=== PATIENT | male | born 1950 | race Caucasian/White ===

== ENCOUNTER 2019-09-01 09:28 | Outpatient (CLI) | payer OTHER, SELFPAY | END 2019-09-01 09:29 | disposition home or self-care (01) | LOC: RAD 09:34 | PROVIDERS: PCP Emergency Medicine Emergency Medical Services; Visit Provider Emergency Medicine Emergency Medical Services | DX: I71.4 Abdominal aortic aneurysm, without rupture (principal) | CPT/HCPCS: 76706 ==

== ENCOUNTER 2020-12-26 11:14 | Outpatient (CLI) | payer OTHER, SELFPAY ==
--- NOTE | 2020-12-26 11:26 | XR_ITS ---
WS: [id number] Exam: XR chest 2V* [id number] Date/Time of Exam: 12/26/2020 11:37 AM Reason For Exam: baseline chest xray No priors. There are interstitial infiltrates noted in the bilateral lower lung zones. 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 Normal cardiomediastinal silhouette. No pleural effusions. No pneumothorax. Regional bony elements are intact. XR/XR chest 2V* [id number] IMPRESSION: 1. Mild interstitial densities in the bilateral lower lung zones. This could re present active pneumonia or chronic change.
[2020-12-26 12:32] LABS: Basophils # 0.1 10^3/uL (0.0-0.1); Eosinophils # 0.2 10^3/uL (0.0-0.8); Eosinophils % 2.2 %; Hematocrit 51.9 % (42.0-52.0); Hemoglobin 16.6 g/dL (11.7-16.6); Lymphocytes % 12.6 %; Mean Corpuscular Hemoglobin 28.4 pg (28.0-34.0); Mean Corpuscular Volume 88.9 fL (80-94); Mean Platelet Volume 12.6 fL (7.4-10.4); Monocytes # 0.8 10^3/uL (0.2-0.9); Monocytes % 9.4 %; Neutrophils # 5.93 10^3/uL (1.8-7.7); Neutrophils % 71.7 %; Nucleated Red Blood Cells % 0 %; Platelet Count 142 10^3/cmm (130-400); Red Blood Count 5.84 10^6/uL (4.1-5.3); Red Cell Distribution Width 14.6 % (12.1-15.1); White Blood Count 8.3 10^3/uL (4.0-10.0)
[2020-12-27 17:01] LABS: Alternaria Alternata (M6) Ige <0.10 kU/L; Alternaria Class 0; Bermuda Class 0; Bermuda Grass (G2) Ige <0.10 kU/L; Cat Dander (E1) Ige <0.10 kU/L; Cat Dander Class 0; Common Ragweed (Short) (W1) Ig <0.10 kU/L; D. Farinae Class 0; Dermatophagoides Class 0; Dermatophagoides Farinae (D2) <0.10 kU/L; Dermatophagoides Pteronyssinus <0.10 kU/L; Dog Dander (E5) Ige <0.10 kU/L; Dog Dander Class 0; Elm (T8) Ige <0.10 kU/L; Elm Class 0; English Plantain (W9) Ige <0.10 kU/L; English Plantain Class 0; House Dust (Greer) (H1) Ige <0.10 kU/L; House Dust (Hollister- Stier) <0.10 kU/L; House Dust Class 0; Immunoglobulin E 13 kU/L (<OR=114); Johnson Grass (G10) Ige <0.10 kU/L; Johnson Grass Cl 0; June Grass Class 0; June Grass(Kentucky Blue) (G8) <0.10 kU/L; Lamb'S Quarters (Goose Foot) <0.10 kU/L; Lamb'S Quarters Class 0; Maple (Box Elder) (T1) Ige <0.10 kU/L; Maple Class 0; Meadow Fescue (G4) Ige <0.10 kU/L; Meadow Fescue Class 0; Mucor Racemosus Class 0; Oak (T7) Ige <0.10 kU/L; Oak Class 0; Orchard Grass (Cocksfoot) (G3) <0.10 kU/L; Penicillium Class 0; Penicillium Notatum (M1) Ige <0.10 kU/L; Perennial Rye Grass (G5) Ige <0.10 kU/L; Perennial Rye Grass Class 0; Ragweeed Class 0; Rough Marsh Elder (W16) Ige <0.10 kU/L; Rough Marsh Elder Class 0; Sweet Vernal Class 0; Sweet Vernal Grass (G1) Ige <0.10 kU/L; Timothy Grass (G6) Ige <0.10 kU/L; Timothy Grass Class 0
== END 2020-12-26 11:15 | disposition home or self-care (01) ==
PROVIDERS: PCP Emergency Medicine Emergency Medical Services; Visit Provider Internal Medicine Pulmonary Disease
DX: J44.9 Chronic obstructive pulmonary disease, unspecified (principal); R06.00 Dyspnea, unspecified
CPT/HCPCS: 71046; 82785; 85025; 86003

== ENCOUNTER 2021-01-17 09:24 | Outpatient (RCR) | payer OTHER, SELFPAY | END 2021-01-28 23:59 | disposition home or self-care (01) | LOC: PULRHB 09:24 | PROVIDERS: PCP Emergency Medicine Emergency Medical Services; Visit Provider Emergency Medicine Emergency Medical Services | DX: J44.9 Chronic obstructive pulmonary disease, unspecified (principal) | CPT/HCPCS: 94618; G0424 ==

== ENCOUNTER → 2021-01-24 10:37 | Outpatient (BNVA) | payer OTHER, SELFPAY | PROVIDERS: PCP Emergency Medicine Emergency Medical Services; Visit Provider Internal Medicine Pulmonary Disease | DX: J44.9 Chronic obstructive pulmonary disease, unspecified (principal); Z20.822 Contact with and (suspected) exposure to COVID-19 | CPT/HCPCS: 87635 ==

== ENCOUNTER 2021-01-29 06:00 | Outpatient (RCR) | payer OTHER, MEDICARE, SELFPAY | END 2021-02-27 23:59 | disposition home or self-care (01) | LOC: PULRHB 06:00 | PROVIDERS: PCP Emergency Medicine Emergency Medical Services; Visit Provider Emergency Medicine Emergency Medical Services | DX: J44.9 Chronic obstructive pulmonary disease, unspecified (principal) | CPT/HCPCS: G0424 ==

== ENCOUNTER 2021-01-29 09:39 | Outpatient (CLI) | payer OTHER, SELFPAY ==
--- NOTE | 2021-01-29 10:15 | USCV_ITS ---
Sameer Parada Age: 70 Gender: M : 1950 Exam Date: 01/29/2021 10:02 Ordering Phys: Ed Ventura MD Technologist: Deandra Ortiz Exam Location: [facility] [place] Indication: CHEST PAIN SOB BP: 135 / 74 HR: 73 Rhythm: Sinus Technical Quality: Adequate MEASUREMENTS (Male / Female) Normal Values 2D ECHO LV Diastolic Diameter PLAX 3.5 cm 4.2 - 5.9 / 3.9 - 5.3 cm LV Systolic Diameter PLAX 3.5 cm LV Chamber Size 3.2 cm IVS Diastolic Thickness 1.4 cm 0.6 - 1.0 / 0.6 - 0.9 cm IVS Systolic Thickness 1.7 cm LVPW Diastolic Thickness 1.5 cm 0.6 - 1.0 / 0.6 - 0.9 cm LVPW Systolic Thickness 2.3 cm RV Chamber Size 3.6 cm LVOT Diameter 2.1 cm LV Ejection Fraction 2D Teich 25.0 % LV Ejection Fraction MOD 2C 50.9 % LV Ejection Fraction 2C AL 53.1 % LA Diameter 4.1 cm LA Width 3.0 cm LA Height 4.6 cm RA Width 3.0 cm RA Height 5.8 cm Aorta at Sinotubular Diameter 3.9 cm M-MODE Aortic Annulus Diameter 3.9 cm LA Ao Ratio MM 1.2 MV E Point Septal Separation 0.6 cm DOPPLER AV Peak Velocity 132.0 cm/s LVOT Peak Velocity 81.0 cm/s AV Area Cont Eq vti 2.4 cm squared AV Area Cont Eq pk 2.2 cm squared MV Area PHT 5.0 cm squared Mitral E to A Ratio 0.5 MV E' Velocity 21.5 cm/s Mitral E to MV E' Ratio 9.0 Mitral E to LV E' Lateral Ratio 7.8 Mitral E to LV E' Septal Ratio 10.8 TR Peak Velocity 183.9 cm/s TR Peak Gradient 13.5 mmHg TR Mean Velocity 176.6 cm/s TR Mean Gradient 13.3 mmHg TR Velocity Time Integral 69.2 cm TV Peak E Velocity 54.0 cm/s Right Atrial Pressure 8.0 mmHg Pulmonary Artery Systolic Pressu 21.5 mmHg PV Peak Velocity 56.0 cm/s RV Acceleration Time 0.1 s RV Ejection Time 0.3 s RV AcT/ET 0.5 FINDINGS Left Ventricle Normal left ventricular size. Grossly LV systolic function appears to be mildly reduced. Regional wall motion abnormalities can not be assessed because of poor visualization. Grade 1 diastolic dysfunction Right Ventricle Grossly RV appears dilated and has mildly reduced function Right Atrium The right atrium is normal in size. Left Atrium The left atrium is normal in size. Mitral Valve Structurally normal mitral valve without significant stenosis or prolapse. There is no mitral regurgitation. Aortic Valve Grossly normal without significant sclerosis or stenosis. There is no aortic regurgitation. Tricuspid Valve Structurally normal tricuspid valve without significant stenosis or regurgitation. Insufficient TR jet to calculate RVSP Pulmonic Valve Not well visualized Pericardium Normal pericardium without effusion. Aorta Ascending aorta appears mildly dilated CONCLUSIONS This is a limited quality echocardiogram because of poor ultrasonic windows. LV systolic function is grossly mildly reduced. Regional wall motion abnormalities cannot be assessed because of poor visualization. Grade 1 diastolic dysfunction is noted. Grossly RV appears dilated and has mildly reduced function. No significant valvular heart disease seen. Ascending aorta appears mildly dilated. No comparison studies are available. Malik Davila MD (Electronically Signed) Final Date: 05 February 2021 22:20 S
--- NOTE | 2021-01-29 12:41 | PFTS_ITS ---
Date of Study:01/29/21 Date of Dictation: MECHANICS: Forced vital capacity (FVC) is reduced. Forced expiratory volume in one second (FEV1) is reduced. FEV1/FVC is normal. FLOW VOLUME LOOP: Narrow. LUNG VOLUMES: Total lung capacity (TLC) is reduced. Residual volume (RV) is reduced. DIFFUSING CAPACITY FOR CARBON MONOXIDE: Moderately reduced. INTERPRETATION: Postbronchodilator spirometry is consistent with moderate restriction. There is no significant postbronchodilator response. Lung volumes are consistent with restrictive lung disease. Gas exchange (DLCO) is moderately reduced. MTDD
== END 2021-01-29 09:40 | disposition home or self-care (01) ==
LOC: RAD 09:42
PROVIDERS: PCP Emergency Medicine Emergency Medical Services; Visit Provider Internal Medicine Pulmonary Disease
DX: R06.00 Dyspnea, unspecified (principal); R07.9 Chest pain, unspecified; R06.02 Shortness of breath; I51.81 Takotsubo syndrome
CPT/HCPCS: 93306; 94060; 94618; 94726; 94729; J7611

== ENCOUNTER 2021-02-11 09:39 | Outpatient (CLI) | payer OTHER, SELFPAY ==
[2021-02-11 10:43] LABS: Alanine Aminotransferase 13 U/L (0-41); Albumin Level 4.3 g/dL (3.5-5.2); Alkaline Phosphatase 80 IU/L (40-130); Anion Gap 14.4 (5-19); Aspartate Amino Transferase 17 U/L (0-40); Blood Urea Nitrogen 29 mg/dL (8-23); C Reactive Protein 4.8 mg/L (0.0-4.9); Calcium 9.7 mg/dL (8.5-10.5); Carbon Dioxide 23 mmol/L (22-29); Chloride 108 mmol/L (98-107); Globulin 2.3 g/dL (1.3-4.6); Glucose 96 mg/dL (65-115); Osmolality Calculated 298 mOsm/kg (285-295); Potassium 4.4 mmol/L (3.5-5.1); Sodium 141 mmol/L (136-145); Total Bilirubin 0.3 mg/dL (0.15-1.2); Total Protein 6.6 g/dL (6.6-8.7)
[2021-02-11 11:40] LABS: Erythrocyte Sedimentation Rate 24 mm/hr (0-10)
[2021-02-12 13:09] LABS: Anti-Double Strand DNA AB <1 IU/mL; Centromere B Antibody <1.0 NEG AI (<1.0 NEG); Cyclic Citrullinated Peptide <16 UNITS; JO-1 Antibody <1.0 NEG AI (<1.0 NEG); SCL 70 <1.0 NEG AI (<1.0 NEG); SS A Ro Sjogrens Antibody <1.0 NEG AI (<1.0 NEG); SS-B/LA IGG <1.0 NEG AI (<1.0 NEG); Sm/RNP Antibody <1.0 NEG AI (<1.0 NEG); Smith Antibody <1.0 NEG AI (<1.0 NEG)
== END 2021-02-11 09:40 | disposition home or self-care (01) ==
PROVIDERS: PCP Emergency Medicine Emergency Medical Services; Visit Provider Internal Medicine Pulmonary Disease
DX: J98.4 Other disorders of lung (principal)
CPT/HCPCS: 36415; 80053; 85651; 86140; 86225; 86235; 86431

== ENCOUNTER 2021-02-14 09:48 | Outpatient (CLI) | payer OTHER, SELFPAY ==
--- NOTE | 2021-02-14 10:45 | CT_ITS ---
WS: [id number] CT CHEST CT-HIGH RESOLUTION, NONCONTRAST. HISTORY: Interstitial lung disease. Technique: High-resolution chest CT is performed in inspiration, expiration, supine and prone positio carmelo. All CT scans at [facility] use at least one of these dose optimization techniques: automa jean pierre exposure control; mA and/or kV adjustment per patient size (includes targeted exams where dose is matched to clinical indication); or iterative reconstruction. DLP: 1533.15 mGycm COMPARISON: Chest radiograph 12/26/2020 Findings: Mild volume loss of each lung. Multiple layers of cystic honeycombing greatest at the lung bases. Honeycombing also extends into the upper lung zarco within a subpleural distribution but is l ess advanced. There is mild traction bronchiectasis greatest at the lung bases. With expiration there is some very mild air trapping and subsegmental portions of the lower lobes. There are additional cy stic areas in the upper lung zarco bilaterally. No dense focal area of consolidation. No pleural effusion or pericardial effusions. Numerous ovoid shaped mediastinal and hilar lymph nodes . Indeterminate with the largest lymph node on the RIGHT inferior paratracheal region measuring 9 mm in diameter. Mild pulmonary artery dilatation. Mild atherosclerosis aorta. Moderate coronary artery c alcifications. Small hiatal hernia. Cholelithiasis without acute cholecystitis. Enlarged LEFT lobe of the thyroid extends substernal. Maximum diameter of 3.[address]/CT chest wo con [id number] Impression: 1. 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 2. Indeterminate mediastinal and hilar lymph nodes can be seen with a UIP. 3. Enlarged LEFT thyroid extends substernal. Recommend follow-up ultrasound to evaluate for possible mass. This may be a goiter. 4. Cholelithiasis without acute cholecystitis.
== END 2021-02-14 09:49 | disposition home or self-care (01) ==
LOC: RADWPI 09:51
PROVIDERS: PCP Emergency Medicine Emergency Medical Services; Visit Provider Internal Medicine Pulmonary Disease
DX: J98.4 Other disorders of lung (principal); K80.20 Calculus of gallbladder without cholecystitis without obstruction; E04.9 Nontoxic goiter, unspecified
CPT/HCPCS: 71250

== ENCOUNTER 2021-02-28 06:00 | Outpatient (RCR) | payer OTHER, SELFPAY | END 2021-03-30 23:59 | disposition home or self-care (01) | LOC: PULRHB 06:00 | PROVIDERS: PCP Emergency Medicine Emergency Medical Services; Visit Provider Emergency Medicine Emergency Medical Services | DX: J44.9 Chronic obstructive pulmonary disease, unspecified (principal) | CPT/HCPCS: G0424 ==

== ENCOUNTER → 2021-04-02 10:32 | Outpatient (BNVA) | payer OTHER, SELFPAY | PROVIDERS: PCP Emergency Medicine Emergency Medical Services; Visit Provider Internal Medicine | DX: J84.112 Idiopathic pulmonary fibrosis (principal); R70.0 Elevated erythrocyte sedimentation rate; M79.643 Pain in unspecified hand; Z79.899 Other long term (current) drug therapy; Z11.59 Encounter for screening for other viral diseases; Z11.1 Encounter for screening for respiratory tuberculosis; Z87.891 Personal history of nicotine dependence | CPT/HCPCS: 36415; 99203; 99204 ==

== ENCOUNTER 2021-04-02 11:42 | Outpatient (CLI) | payer OTHER, SELFPAY ==
--- NOTE | 2021-04-02 11:46 | XR_ITS ---
WS: [id number] Left hand, 2 views, 04/02/2021 Clinical Data: J84.112 - Idiopathic pulmonary fibrosis Comparison: None. Findings: No fractures or dislocations are seen. The soft tissues are unremarkable. There is osteoarthritic pilo nge of the left first, third and fourth MCP joints. There is osteoarthritic change of the left first IP joint and the second through fourth PIP joints. There is osteoarthritis of the second through four th DIP joints. No periarticular demineralization or calcifications are seen. XR/XR hand LT 2V [id number] Impression: Diffuse osteoarthritis of the left hand.
--- NOTE | 2021-04-02 11:46 | XR_ITS ---
WS: [id number] Right hand, 2 views, 04/02/2021 Clinical Data: J84.112 - Idiopathic pulmonary fibrosis Comparison: None. Findings: No fractures or dislocations are seen. The soft tissues are unremarkable. Osteoarthritic change of the first through third MCP joints, first IP joint, second through fifth PIP joints and sec ond through fourth DIP joints is seen. There is osteoarthritic change of the radial ulnar articulatio n and radiocarpal and ulnar carpal articulation. No periarticular demineralization or calcification i s seen. 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
== END 2021-04-02 11:43 | disposition home or self-care (01) ==
PROVIDERS: PCP Emergency Medicine Emergency Medical Services; Visit Provider Internal Medicine
DX: J84.112 Idiopathic pulmonary fibrosis (principal); M32.9 Systemic lupus erythematosus, unspecified; Z11.59 Encounter for screening for other viral diseases; Z11.1 Encounter for screening for respiratory tuberculosis; D86.9 Sarcoidosis, unspecified
CPT/HCPCS: 73120; 86480; 86704; 86803; 87340

== ENCOUNTER 2021-04-30 10:15 | Outpatient (CLI) | payer OTHER, SELFPAY ==
[2021-04-30 11:23] LABS: Alanine Aminotransferase 13 U/L (0-41); Alkaline Phosphatase 82 IU/L (40-130); Aspartate Amino Transferase 17 U/L (0-40); Globulin 2.8 g/dL (1.3-4.6); Total Bilirubin 0.2 mg/dL (0.15-1.2); Total Protein 6.8 g/dL (6.6-8.7)
== END 2021-04-30 10:16 | disposition home or self-care (01) ==
LOC: LAB 10:17
PROVIDERS: PCP Emergency Medicine Emergency Medical Services; Visit Provider Internal Medicine Pulmonary Disease
DX: J84.112 Idiopathic pulmonary fibrosis (principal)
CPT/HCPCS: 36415; 80076

== ENCOUNTER 2021-05-28 13:08 | Outpatient (CLI) | payer OTHER, SELFPAY ==
--- NOTE | 2021-05-28 13:21 | US_ITS ---
WS: [id number] THYROID ULTRASOUND (TI-RADS CRITERIA) History: Thyroid nodules. Technique: Ultrasound examination of the thyroid and adjacent soft tissues is performed. FINDINGS: Right lobe: 6.0 cm x 2.0 cm x 2.2 cm. Volume: 14.0 cm3. Lobulated heterogeneous thyroid. Well-circumscribed hyperechoic nodule in the mid gland measures 1.2 x 0.9 x 1.3 cm. No increased vascularity. There is an additional hypoechoic nodule measuring 0.7 x 1. 2 x 1.8 cm in the inferior lobe. Lymph nodes: None. Left lobe: 6.8 cm x 4.1 cm x 3.4 cm. Volume: 49.8 cm3. Enlarged LEFT thyroid. Very lobulated appearance to the thyroid gland. The entire gland is lobulated and heterogeneous. Within the abnormal thyroid there is a hypoechoic nodule measuring 1.9 x 2.0 x 2.5 cm in the mid posterior gland. Lymph nodes: None. Isthmus: 0.8 cm. US/US thyroid [id number] Impression: 1. Multinodular enlarged LEFT thyroid. Consider fine-needle aspiration by ultr asound of the hypoechoic portion of the LEFT thyroid nodule. 2. Multiple nodules in the RIGHT thyroid for which yearly follow-up evaluation recommended.
[2021-05-28 15:01] LABS: Alanine Aminotransferase 12 U/L (0-41); Alkaline Phosphatase 76 IU/L (40-130); Aspartate Amino Transferase 14 U/L (0-40); Globulin 2.8 g/dL (1.3-4.6); Total Bilirubin 0.2 mg/dL (0.15-1.2); Total Protein 6.8 g/dL (6.6-8.7)
== END 2021-05-28 13:09 | disposition home or self-care (01) ==
PROVIDERS: PCP Emergency Medicine Emergency Medical Services; Referring Provider Internal Medicine Pulmonary Disease; Visit Provider Nurse Practitioner Family
DX: J84.112 Idiopathic pulmonary fibrosis (principal); Z79.899 Other long term (current) drug therapy; Q89.2 Congenital malformations of other endocrine glands; E04.2 Nontoxic multinodular goiter
CPT/HCPCS: 36415; 76536; 80076

== ENCOUNTER → 2021-05-31 10:16 | Outpatient (BNVA) | payer OTHER, SELFPAY | PROVIDERS: PCP Emergency Medicine Emergency Medical Services; Visit Provider Internal Medicine | DX: E04.2 Nontoxic multinodular goiter (principal); Z79.4 Long term (current) use of insulin | CPT/HCPCS: 99213; 99214 ==

== ENCOUNTER 2021-05-31 11:30 | Outpatient (CLI) | payer OTHER, SELFPAY ==
[2021-05-31 12:15] LABS: Thyroid Stimulating Hormone 2.83 uIU/mL (0.27-4.20)
== END 2021-05-31 11:31 | disposition home or self-care (01) ==
LOC: LAB 11:34
PROVIDERS: PCP Emergency Medicine Emergency Medical Services; Visit Provider Internal Medicine
DX: E04.9 Nontoxic goiter, unspecified (principal)
CPT/HCPCS: 84443

== ENCOUNTER → 2021-11-13 09:24 | Outpatient (BNVA) | payer OTHER, SELFPAY | PROVIDERS: PCP Emergency Medicine Emergency Medical Services; Visit Provider Internal Medicine Pulmonary Disease | DX: J84.112 Idiopathic pulmonary fibrosis (principal) | CPT/HCPCS: 87635 ==

== ENCOUNTER 2021-11-19 11:19 | Outpatient (CLI) | payer OTHER, SELFPAY ==
--- NOTE | 2021-11-19 13:34 | PFTS_ITS ---
Date of Study:11/19/21 Date of Dictation: 11/20/21 MECHANICS: Pre bronchodilator Forced vital capacity (FVC) is reduced 65%. Pre bronchodilator Forced expiratory volume in one second (FEV1) is 72% . FEV1/FVC is normal. There is no post bronchodialator study performed. FLOW VOLUME LOOP: Normal LUNG VOLUMES: Total lung capacity (TLC) is mildly reduced 75%. Residual volume (RV) is normal. DIFFUSING CAPACITY FOR CARBON MONOXIDE: severely reduced 30% . INTERPRETATION: The prebronchodilator spirometry is consistent with moderate restriction. Lungs volumes show mild restriction. Gas transfer is severely reduced out of proportion to restriction suggesting coexisting pulmonary vascular disease .Correlate clinically. MTDD
== END 2021-11-19 11:20 | disposition home or self-care (01) ==
PROVIDERS: PCP Emergency Medicine Emergency Medical Services; Visit Provider Internal Medicine Pulmonary Disease
DX: J84.112 Idiopathic pulmonary fibrosis (principal)
CPT/HCPCS: 94010; 94618; 94726; 94729

== ENCOUNTER → 2021-11-20 13:10 | Outpatient (BNVA) | payer OTHER, SELFPAY | PROVIDERS: PCP Emergency Medicine Emergency Medical Services; Visit Provider Internal Medicine Pulmonary Disease | DX: J44.9 Chronic obstructive pulmonary disease, unspecified (principal); J98.4 Other disorders of lung; J84.112 Idiopathic pulmonary fibrosis; Z87.891 Personal history of nicotine dependence; E11.8 Type 2 diabetes mellitus with unspecified complications; E78.5 Hyperlipidemia, unspecified; I10 Essential (primary) hypertension | CPT/HCPCS: 99214 ==

== ENCOUNTER 2021-12-02 12:55 | Outpatient (CLI) | payer OTHER, SELFPAY ==
--- NOTE | 2021-12-02 13:03 | US_ITS ---
WS: [id number] ULTRASOUND RENAL TECHNIQUE: Ultrasound examination of both kidneys. CLINICAL INFORMATION: CHRONIC KIDNEY DZ STAGE 3B COMPARISON: None. FINDINGS: RIGHT:3. Incidental simple RIGHT renal cyst lower pole measuring 1.0 x 0.8 x 1.0 cm Right kidney is normal in size and appearance. Echogenicity: Normal. Cortical thickness: 1.5 cm; Normal. Hydronephrosis: None. Perinephric fluid: None. Right kidney measures: 12.2 cm x 5.6 cm x 6.2 cm. LEFT: Hypoechoic lesion mid LEFT kidney measuring 1.7 x 2.1 x 1.8 cm is indeterminant and not definit marquita cystic. No internal vascularity. Recommend further evaluation with contrast-enhanced CT of abdome n and pelvis. Left kidney is normal in size and appearance. Echogenicity: Normal. Cortical thickness: 1.7 cm; Normal. Hydronephrosis: None. Perinephric fluid: None. Left kidney measures: 12.5 cm x 5.5 cm x 5.6 cm. Normal visualized aorta. Normal bladder. US/US renal BI* [id number] IMPRESSION: 1. No hydronephrosis in either kidney. 2. Hypoechoic LEFT renal lesion measuring 1.7 x 2.1 x 1.8 cm is not definitely cystic and recommend further evaluation with contrast-enhanced CT abdomen pelv is. 3. Incidental simple RIGHT renal cyst lower pole measuring 1.0 x 0.8 x 1.0 cm
== END 2021-12-02 12:56 | disposition home or self-care (01) ==
PROVIDERS: PCP Emergency Medicine Emergency Medical Services; Visit Provider Registered Nurse
DX: N18.32 Chronic kidney disease, stage 3b (principal); N28.89 Other specified disorders of kidney and ureter; N28.1 Cyst of kidney, acquired
CPT/HCPCS: 76770

== ENCOUNTER → 2021-12-13 09:54 | Outpatient (BNVA) | payer OTHER, SELFPAY | PROVIDERS: PCP Emergency Medicine Emergency Medical Services; Visit Provider Internal Medicine | DX: E04.1 Nontoxic single thyroid nodule (principal); E04.9 Nontoxic goiter, unspecified; R13.10 Dysphagia, unspecified; Z87.891 Personal history of nicotine dependence | CPT/HCPCS: 99213; 99214 ==

== ENCOUNTER 2022-01-02 13:37 | Outpatient (CLI) | payer OTHER, SELFPAY ==
--- NOTE | 2022-01-02 13:45 | CT_ITS ---
WS: [id number] CT ABDOMEN WITHOUT CONTRAST HISTORY: CYST OF KIDNEY Contiguous single phase 5 mm axial imaging performed to the abdomen. Oral contrast has not been provi ded. Coronal and sagittal reformats are submitted. All CT scans at [facility] use at least on e of these dose optimization techniques: automated exposure control; mA and/or kV adjustment per jana ent size (includes targeted exams where dose is matched to clinical indication); or iterative reconst ruction. CONTRAST: None DLP: 900.93 mGy.cm COMPARISON: Renal ultrasound 12/02/2021 Lower thorax: Bilateral lower lobe mild honeycombing. No discrete mass. Heart is mildly enlarged. Mod erate size hiatal hernia. Liver: Normal. No intrahepatic dilatation. Small amount of air is noted within the common bile duct t hrough the pancreatic head. Gallbladder: Prior cholecystectomy. Pancreas: Moderate atrophy and fatty replacement. No duct dilatation. Spleen: Normal. Adrenals: Normal. Right kidney: Normal. Left kidney: Recently described mass by ultrasound is not definitely visualized by CT. There is very slight bulging of the contour at the lower pole. I cannot confirm this is the same area seen by ultra sound. No hydronephrosis. Aorta: Status post endovascular graft repair of the aorta. No adjacent hematoma. No prior study for c omparison but no abnormality is identified on this unenhanced exam. GI tract: Unremarkable stomach and proximal small bowel. The appendix is visualized and as visualized is normal. Numerous diverticula in the visualized colon. No adenopathy or free fluid. Abdominal wall: No hernia. Visualized osseous structures: Advanced degenerative disc disease and spondylitic changes in the spin e. CT/CT abdomen wo con [id number] IMPRESSION: 1. Recently described LEFT renal mass is not visualized or evaluated well on t his unenhanced CT of the abdomen. Very slight bulge in the contour of the lower pole but otherwise no change in attenuation. If the patient is unable to have IV contrast consider short-term follow-up by ultrasound to evaluate for any pilo nge in size of the solid appearing mass. 2. Status post endovascular graft repair of the aorta as visualized is normal. 3. Prior cholecystectomy. 4. Honeycombing consistent with IUP at the lung bases. 5. Moderate hiatal hernia.
== END 2022-01-02 13:38 | disposition home or self-care (01) ==
PROVIDERS: PCP Emergency Medicine Emergency Medical Services; Visit Provider Internal Medicine Nephrology
DX: N28.1 Cyst of kidney, acquired (principal); Z90.49 Acquired absence of other specified parts of digestive tract; K44.9 Diaphragmatic hernia without obstruction or gangrene; J98.4 Other disorders of lung
CPT/HCPCS: 74150

== ENCOUNTER 2022-02-06 11:08 | Outpatient (CLI) | payer OTHER, SELFPAY ==
[2022-02-06 11:59] LABS: Basophils # 0.1 10^3/uL (0.0-0.1); Basophils % 0.7 %; Eosinophils # 0.4 10^3/uL (0.0-0.8); Hematocrit 49.1 % (42.0-52.0); Hemoglobin 15.5 g/dL (11.7-16.6); Lymphocytes # 1.7 10^3/uL (0.8-4.8); Lymphocytes % 19.3 %; Mean Corpuscular HGB Conc 31.6 g/dL (30.0-36.0); Mean Corpuscular Volume 88.8 fl (80-94); Mean Platelet Volume 11.7 fL (7.4-10.4); Monocytes # 0.7 10^3/uL (0.2-0.9); Monocytes % 7.9 %; Neutrophils % 64.3 %; Nucleated Red Blood Cells % 0 %; Platelet Count 235 10^3/cmm (130-400); Red Blood Count 5.53 10^6/uL (4.1-5.3); Red Cell Distribution Width 14.7 % (12.1-15.1); White Blood Count 8.7 10^3/uL (4.0-10.0)
[2022-02-06 12:12] LABS: Erythrocyte Sedimentation Rate 18 mm/hr (0-10)
[2022-02-06 12:22] LABS: Alanine Aminotransferase 17 U/L (0-41); Albumin Level 4.4 g/dL (3.5-5.2); Alkaline Phosphatase 117 IU/L (40-130); Anion Gap 15.3 (5-19); Aspartate Amino Transferase 17 U/L (0-40); Blood Urea Nitrogen 24 mg/dL (8-23); C Reactive Protein 8.5 mg/L (0.0-4.9); Calcium 9.9 mg/dL (8.5-10.5); Carbon Dioxide 25 mmol/L (22-29); Chloride 102 mmol/L (98-107); Globulin 3.5 g/dL (1.3-4.6); Glucose 117 mg/dL (65-115); Osmolality Calculated 291 mOsm/kg (285-295); Potassium 4.3 mmol/L (3.5-5.1); Sodium 138 mmol/L (136-145); Total Bilirubin 0.3 mg/dL (0.15-1.2); Total Protein 7.9 g/dL (6.6-8.7)
== END 2022-02-06 11:09 | disposition home or self-care (01) ==
LOC: LAB 11:10
PROVIDERS: PCP Emergency Medicine Emergency Medical Services; Visit Provider Internal Medicine
DX: R70.0 Elevated erythrocyte sedimentation rate (principal); J84.112 Idiopathic pulmonary fibrosis; Z79.899 Other long term (current) drug therapy
CPT/HCPCS: 36415; 80053; 85025; 85651; 86140

== ENCOUNTER → 2022-02-10 10:25 | Outpatient (BNVA) | payer OTHER, SELFPAY | PROVIDERS: PCP Emergency Medicine Emergency Medical Services; Visit Provider Internal Medicine | DX: J44.9 Chronic obstructive pulmonary disease, unspecified (principal); J84.112 Idiopathic pulmonary fibrosis; M79.643 Pain in unspecified hand; R70.0 Elevated erythrocyte sedimentation rate; N18.9 Chronic kidney disease, unspecified; Z87.891 Personal history of nicotine dependence | CPT/HCPCS: 99213; 99214 ==

== ENCOUNTER 2022-03-11 13:14 | Outpatient (CLI) | payer OTHER, SELFPAY ==
--- NOTE | 2022-03-11 14:00 | US_ITS ---
WS: [id number] ULTRASOUND THYROID FNA CLINICAL INFORMATION: FNA of 1.8 and 2.5 cm nodule TECHNIQUE: Ultrasound-guided FNA FINDINGS: The procedure including risks, benefits, and complications were discussed with the patient who agreed to proceed. Timeout was performed. Using sterile technique patient was prepped and draped in usual sterile fashion. After 1% lidocaine, using ultrasound guidance, a 25-gauge needle was advanc ed into the LEFT mid thyroid nodule. 3 passes were made with active aspiration. Pathology was present for slide preparation. No immediate complications. Patient remained in the ultrasound suite 20 minutes postprocedure with intermittent ultrasound to ens ure no hematoma. No hematoma 20 minutes postprocedure. RIGHT inferior thyroid nodule measuring 1.18 x 1.2 x 0.7 cm in the far inferior RIGHT thyroid gland n ot easily accessible with FNA. Recommend 12 month follow-up . US/US biopsy/FNA thyroid [id number] IMPRESSION: 1. Uncomplicated ultrasound-guided thyroid FNA of the dominant heterogeneous h ypoechoic mid LEFT thyroid nodule 2. RIGHT inferior thyroid nodule measuring 1.18 x 1.2 x 0.7 cm in the far infe rior RIGHT thyroid gland not easily accessible with FNA. Recommend 12 month fol low-up .
== END 2022-03-11 13:15 | disposition home or self-care (01) ==
LOC: RAD 13:15
PROVIDERS: PCP Emergency Medicine Emergency Medical Services; Visit Provider Internal Medicine
DX: E04.1 Nontoxic single thyroid nodule (principal); E04.9 Nontoxic goiter, unspecified
CPT/HCPCS: 10005; 88173; 88305

== ENCOUNTER 2022-03-17 10:11 | Outpatient (CLI) | payer OTHER, SELFPAY ==
[2022-03-17 10:49] LABS: Basophils # 0.1 10^3/uL (0.0-0.1); Basophils % 0.8 %; Eosinophils # 0.4 10^3/uL (0.0-0.8); Eosinophils % 5.1 %; Hematocrit 50.4 % (42.0-52.0); Hemoglobin 15.8 g/dL (11.7-16.6); Lymphocytes # 1.5 10^3/uL (0.8-4.8); Lymphocytes % 17.2 %; Mean Corpuscular HGB Conc 31.3 g/dL (30.0-36.0); Mean Corpuscular Hemoglobin 28.3 pg (28.0-34.0); Mean Corpuscular Volume 90.3 fl (80-94); Mean Platelet Volume 11.8 fL (7.4-10.4); Monocytes # 0.6 10^3/uL (0.2-0.9); Monocytes % 7.4 %; Neutrophils # 5.65 10^3/uL (1.8-7.7); Neutrophils % 67.1 %; Nucleated Red Blood Cells % 0 %; Platelet Count 195 10^3/cmm (130-400); Red Blood Count 5.58 10^6/uL (4.1-5.3); Red Cell Distribution Width 14.9 % (12.1-15.1); White Blood Count 8.4 10^3/uL (4.0-10.0)
[2022-03-17 11:25] LABS: Creatinine Urine, Random 192 mg/dL (39-259); Microalbum Creatinine Ratio Ur 31 mg/dL (0-20); Microalbumin Random Urine 6 ug/dL (0-20)
[2022-03-17 11:26] LABS: Calcium 9.8 mg/dL (8.5-10.5)
[2022-03-17 11:32] LABS: Parathyroid Hormone 123.4 pg/mL (15-65)
[2022-03-17 11:45] LABS: Albumin Level 4.3 g/dL (3.5-5.2); Anion Gap 12.6 (5-19); Blood Urea Nitrogen 24 mg/dL (8-23); Calcium 9.8 mg/dL (8.5-10.5); Carbon Dioxide 28 mmol/L (22-29); Chloride 105 mmol/L (98-107); Glucose 130 mg/dL (65-115); Phosphorus 2.6 mg/dL (2.5-4.5); Potassium 4.6 mmol/L (3.5-5.1); Sodium 141 mmol/L (136-145)
[2022-03-17 13:18] LABS: 25 Hydroxy Vitamin D 30 ng/mL (30-100)
== END 2022-03-17 10:12 | disposition home or self-care (01) ==
LOC: LAB 10:15
PROVIDERS: PCP Emergency Medicine Emergency Medical Services; Visit Provider Registered Nurse
DX: Z87.891 Personal history of nicotine dependence (principal); Z79.899 Other long term (current) drug therapy
CPT/HCPCS: 36415; 80069; 82044; 82306; 82310; 83970; 85025

== ENCOUNTER → 2022-05-29 16:50 | Outpatient (BNVA) | payer OTHER, SELFPAY | PROVIDERS: PCP Emergency Medicine Emergency Medical Services; Visit Provider Internal Medicine Pulmonary Disease | DX: J84.112 Idiopathic pulmonary fibrosis (principal); J98.4 Other disorders of lung; J44.9 Chronic obstructive pulmonary disease, unspecified; R06.00 Dyspnea, unspecified; Z99.81 Dependence on supplemental oxygen; Z87.891 Personal history of nicotine dependence; R94.2 Abnormal results of pulmonary function studies | CPT/HCPCS: 36415; 80076; 99214 ==

== ENCOUNTER → 2022-06-13 10:07 | Outpatient (BNVA) | payer OTHER, SELFPAY | PROVIDERS: PCP Emergency Medicine Emergency Medical Services; Visit Provider Internal Medicine | DX: E04.1 Nontoxic single thyroid nodule (principal); E04.9 Nontoxic goiter, unspecified; R13.10 Dysphagia, unspecified | CPT/HCPCS: 99214 ==

== ENCOUNTER 2022-08-27 11:14 | Outpatient (CLI) | payer OTHER, SELFPAY ==
[2022-08-27 12:18] LABS: Alanine Aminotransferase 12 U/L (0-41); Albumin Level 4.1 g/dL (3.5-5.2); Alkaline Phosphatase 99 U/L (40-130); Aspartate Amino Transferase 17 U/L (0-40); Globulin 3.4 g/dL (1.3-4.6); Total Bilirubin 0.3 mg/dL (0.15-1.2); Total Protein 7.5 g/dL (6.6-8.7)
== END 2022-08-27 11:15 | disposition home or self-care (01) ==
LOC: LAB 11:18
PROVIDERS: PCP Emergency Medicine Emergency Medical Services; Visit Provider Internal Medicine Pulmonary Disease
DX: J84.112 Idiopathic pulmonary fibrosis (principal)
CPT/HCPCS: 36415; 80076

== ENCOUNTER 2022-11-11 12:36 | Outpatient (CLI) | payer OTHER, SELFPAY ==
[2022-11-11 13:02] VITALS: PULSE 79; RESP 20; O2SAT 95
[2022-11-11] MEDS: albuterol 2.5 mg/3 mL Neb INHALATION (13:02)
[2022-11-11 13:07] VITALS: PULSE 80
== END 2022-11-11 12:37 | disposition home or self-care (01) ==
PROVIDERS: PCP Emergency Medicine Emergency Medical Services; Visit Provider Internal Medicine Pulmonary Disease
DX: J84.112 Idiopathic pulmonary fibrosis (principal); J98.4 Other disorders of lung
CPT/HCPCS: 94060; 94726; 94729; J7613

== ENCOUNTER → 2022-11-14 12:04 | Outpatient (BNVA) | payer OTHER, SELFPAY | PROVIDERS: PCP Emergency Medicine Emergency Medical Services; Visit Provider Internal Medicine Pulmonary Disease | DX: J84.112 Idiopathic pulmonary fibrosis (principal); Z79.899 Other long term (current) drug therapy | CPT/HCPCS: 36415; 80053; 99214 ==

== ENCOUNTER 2022-12-26 14:15 | Outpatient (CLI) | payer OTHER, SELFPAY ==
--- NOTE | 2022-12-26 14:15 | US_ITS ---
WS: [id number] ULTRASOUND THYROID TECHNIQUE: Ultrasound of the thyroid. CLINICAL INFORMATION: Thyroid nodule COMPARISON: 2020 FINDINGS: Thyroid: Diffusely heterogeneous thyroid echotexture with multinodular goiter. Findings are not signi ficantly changed compared to 202. Right thyroid lobe: 4.8 cm x 1.7 cm x 2.1 cm Dominant right-sided nodule in the RIGHT mid lateral thyroid measuring 1.3 x 1.2 x 1.3 cm is stable. Stable RIGHT inferior thyroid nodule measuring 1.1 x 0.7 x 1.2 CM. Left thyroid lobe: 5.2 cm x 4.5 cm x 3.4 cm. Heterogeneous dominant left-sided thyroid nodule in the mid thyroid previously sampled measuring 2.3 x 2.2 x 2.7 cm is unchanged. Isthmus: 3.0 mm. Cervical lymphadenopathy: None. US/US thyroid [id number] IMPRESSION: Multinodular goiter with dominant nodules described above not significantly pilo nged since 2020
== END 2022-12-26 14:16 | disposition home or self-care (01) ==
LOC: RAD 14:18
PROVIDERS: PCP Emergency Medicine Emergency Medical Services; Visit Provider Internal Medicine
DX: E04.1 Nontoxic single thyroid nodule (principal); E04.9 Nontoxic goiter, unspecified
CPT/HCPCS: 76536